=== PATIENT | female | born 1955 | race Caucasian/White ===

== ENCOUNTER → 2020-12-19 | Outpatient (CLI) | payer BC ==
--- NOTE | 2020-12-19 13:21 | RAD ---
INDICATION: Screening for osteopenia/osteoporosis. Postmenopausal evaluation. COMPARISON: None. TECHNIQUE: Bone densitometry was performed through the lumbar spine and proximal femur. IMPRESSION: Lumbar Spine: BMD: 1.08 T-Score: -0.8 Range: Lower limits of normal Proximal Femur: BMD: 0.99 T-Score: 0.3 Range: Normal World Health Organization Criteria for Bone Density: T-Score: > -1.0: Normal Range < -1.0 to -2.5: Osteopenic Range < -2.5: Osteoporotic Range Electronically signed by: Albaro Cantor MD (12/19/2020 1:19 PM) [id number]
--- NOTE | 2020-12-19 19:54 | RAD ---
EXAM: Right fourth finger, 3 views. HISTORY: Jammed finger. COMPARISON: None. FINDINGS: 3 views of the right fourth finger are obtained. There is a suspected tiny avulsion fractur e fragment along the dorsal aspect of the distal fourth middle phalanx. IMPRESSION: Suspected tiny avulsion fracture fragment along the dorsal aspect of the distal fourth mi ddle phalanx. Correlate for point tenderness in this location. Electronically signed by: Demi Seaman MD (12/19/2020 7:51 PM) [facility]
--- NOTE | 2020-12-21 18:30 | RAD ---
DATE: 12/19/2020 EXAM: MAMMO JOSHUA SCREENING BILATERAL HISTORY: Screening COMPARISON: 10/15/2016, 11/24/2018 This study was interpreted with the benefit of Computerized Aided Detection (CAD). Breast Density: SCATTERED The breast parenchyma shows scattered fibroglandular densities. Breast parenchyma level B. FINDINGS: No mass, suspicious calcification, or architectural distortion in either breast. IMPRESSION: No evidence of malignancy. BI-RADS CATEGORY: 1 NEGATIVE RECOMMENDED FOLLOW-UP: 12M 12 MONTH FOLLOW-UP PQRS compliance statement: Patient information was entered into a reminder system with a target due date for the next mammogram. Mammography is a sensitive method for finding small breast cancers, but it does not detect them all and is not a substitute for careful clinical examination. A negative mammogram does not negate a clinically suspicious finding and should not result in delay in biopsying a clinically suspicious abnormality. "Our facility is accredited by the [employer] Mammography Program."
== END ==
LOC: DXRAD 12:13
PROVIDERS: ATTEND Family Medicine
DX: Z12.31 Encounter for screening mammogram for malignant neoplasm of breast (principal); S69.91XA Unspecified injury of right wrist, hand and finger(s), initial encounter; Z78.0 Asymptomatic menopausal state; X58.XXXA Exposure to other specified factors, initial encounter; Y93.89 Activity, other specified; Y92.89 Other specified places as the place of occurrence of the external cause; Y99.8 Other external cause status
CPT/HCPCS: 73140; 77063; 77067; 77080